=== PATIENT | female | born 1990 | race Caucasian/White ===

== ENCOUNTER 2017-04-27 12:12 | Day surgery (SDC) | payer BC ==
[~2017-04-27 12:12] MED LIST: LACTATED RINGERS 1,000 ML IV SCH; LIDOCAINE 1% 20 ML VIAL (10MG/ML) FOR IV START INTRADERMA PRN
[2017-04-27 13:03] VITALS: RESP 16; TEMP 97.5
[2017-04-27] MEDS ORDERED: PROPOFOL 10 MG/ML 20 ML VIAL IV ONE (14:08)
--- NOTE | 2017-04-27 14:50 | P.PCN ---
Date of Procedure: 04/27/17 Procedure(s) Performed: Procedures: 1. Esophagogastroduodenoscopy and biopsy. 2. Colonoscopy and biopsy. Preoperative diagnosis: Epigastric pain and diarrhea. Postoperative diagnosis: 1. Small sliding hiatal hernia with no obvious esophagitis or complicated reflux disease. 2. Mild antral gastritis. 3. Normal colon and terminal ileum. 4. Biopsies obtained from the duodenum, antrum , esophagus, terminal ileum and random colon. Preparation: HalfLytely prep. Sedation: Was provided by anesthesia. Brief clinical history: The patient is a 27-year-old female who is scheduled for this evaluation because of epigastric pain and diarrhea that she had been having intermittently since he was in high school. There is no other alarm symptoms or extraintestinal manifestations of inflammatory bowel disease. This evaluation is to assess for inflammatory bowel disease, complicated reflux disease, celiac disease or other pathology. Procedure: With the patient on her left lateral decubitus position and after informed consent and adequate sedation, I passed the Olympus-GIF 160 video upper endoscope through the cricopharyngeus down the esophagus. GE junction was around 35-36 cm from the incisors and there was a small 1 cm sliding hiatal hernia. The esophagus did not show any obvious erosions or ulcers. There were no strictures or Roberts's esophagus. The endoscope was then passed into the stomach which was insufflated with air and inspected in detail including the retroflex view in the cardia. There was some mottling and erythema in the antrum but no ulcers or erosions. Pyloric channel, duodenal bulb, post bulbar area and descending duodenum appeared within normal limits. Because of her symptoms, I obtained biopsies from the duodenum, antrum and esophagus then the endoscope was withdrawn and I proceeded with the colonoscopy. The perianal area was inspected and it did not show any fissures or fistulas. There were no masses felt on digital rectal examination. The Olympus CFQ 160L video colonoscope was then inserted in the rectum in the usual fashion and advanced to the cecum. I intubated the ileocecal valve and examined the terminal ileum. The colon and terminal ileum appeared healthy with no edema, erythema, friability, ulceration, exudation or spontaneous bleeding. No polyps or tumors were seen. I obtained biopsies from the terminal ileum and randomly from the colon then I retroflexed the endoscope in the rectum before the endoscope was withdrawn. The patient tolerated the procedure well. Plan: The patient was reassured. Will await biopsy results and make further plans based on her course and biopsy results. I'll keep you updated on her progress.
[2017-04-27 15:13] VITALS: BP 120/85; PULSE 69
== END 2017-04-27 15:39 | disposition home or self-care (01) ==
LOC: ORWHC2ENDO 12:12
DX: K29.50 Unspecified chronic gastritis without bleeding (principal); K44.9 Diaphragmatic hernia without obstruction or gangrene; R19.7 Diarrhea, unspecified; Z91.040 Latex allergy status; Z79.899 Other long term (current) drug therapy
CPT/HCPCS: 81025; 88305; 88342; 45380; 43239; J2704

== ENCOUNTER → 2021-11-25 | Outpatient (CLI) | payer BC ==
[2021-11-25 14:43] LABS: Basophils # (A) 0.04 X 10*3/uL (0.00-0.10); Basophils % (A) 0.4 %; Eosinophils # (A) 0.09 X 10*3/uL (0.04-0.35); Eosinophils % (A) 0.9 %; HCT 42.9 % (37.2-46.3); HGB 13.8 g/dL (12.0-15.0); Immature Grans, Automated 0.4 %; Lymphocytes # (A) 2.43 X 10*3/uL (0.90-5.00); Lymphocytes % (A) 24.1 %; MCH 27.9 pg (27.0-32.0); MCHC 32.2 g/dL (32.0-37.0); MCV 86.7 fL (80.0-97.0); Mean Platelet Volume 10.4 fL (9.5-12.2); Monocytes # (A) 0.47 X 10*3/uL (0.20-1.00); Monocytes % (A) 4.7 %; NRBC Per 100 WBC 0 /100 WBCS (0.0-0.0); Neutrophils # (A) 7.02 X 10*3/uL (1.80-7.70); Neutrophils % (A) 69.5 %; Platelet Count 353 X 10*3/uL (140-440); RBC 4.95 X 10*6/uL (4.10-5.20); WBC 10.09 X 10*3/uL (4.50-10.00)
[2021-11-25 17:04] LABS: ALT 8 U/L (8-44); AST 17 U/L (13-35); African American GFR (CKD) 115.5 (60.0-200.0); Albumin 4.3 g/dL (3.8-4.9); Albumin/Globulin Ratio 1.19 (1.60-3.17); Alkaline Phosphatase 89 U/L (41-126); Blood Urea Nitrogen 8.8 mg/dL (9.0-27.0); Calcium 9.5 mg/dL (8.7-10.3); Carbon Dioxide 22.3 mmol/L (20.0-27.5); Chloride 103 mmol/L (96-109); Chol/HDL Ratio 3.96 Ratio; Globulin 3.6 g/dL (1.6-3.3); Glucose 92 mg/dL (70-110); LDL Cholesterol,Calculated 131.2 mg/dL (0.0-131.0); Lipase 30 U/L (14-63); Non-African American GFR(CKD) 99.6 (60.0-200.0); Potassium 4.1 mmol/L (3.5-5.5); Sodium 138 mmol/L (135-145); Total Protein 7.9 g/dL (6.2-8.2)
== END | disposition home or self-care (01) ==
LOC: LABWHC1 09:22
PROVIDERS: ATTEND Family Medicine
DX: K58.2 Mixed irritable bowel syndrome (principal); K29.60 Other gastritis without bleeding; E53.8 Deficiency of other specified B group vitamins
CPT/HCPCS: 36415; 80053; 80061; 82607; 83516; 83690; 84443; 85025

== ENCOUNTER 2022-01-26 09:25 | Day surgery (SDC) | payer BC ==
[2022-01-25 12:51] VITALS: BMI 40.2
[~2022-01-26 09:25] MED LIST changes: +LIDOCAINE 1% (10MG/ML) FOR IV START INTRADERMA PRN; -LIDOCAINE 1% 20 ML VIAL (10MG/ML) FOR IV START INTRADERMA PRN
[2022-01-26 09:55] VITALS: TEMP 98.3
[2022-01-26] MEDS ORDERED: PROPOFOL 10 MG/ML 20 ML VIAL IV ONE (10:29)
--- NOTE | 2022-01-26 10:40 | P.PCN ---
Date of Procedure: 01/26/22 Procedure(s) Performed: BRIEF HISTORY: Patient is a 31-year-old, pleasant, white female scheduled for an upper endoscopy as a part of evaluation of positive serologies for celiac disease. His been having intermittent diarrhea and abdominal pain years duration.. PROCEDURE PERFORMED: Esophagogastroduodenoscopy with biopsy. PREOPERATIVE DIAGNOSIS: Positive serologies for celiac disease. IV sedation per anesthesia. PROCEDURE: After informed consent was obtained, the patient was brought into the endoscopy unit. IV sedation was administered by Anesthesia under continuous monitoring. Initially the Olympus GIF-140 video endoscope was inserted into the mouth. Esophagus intubated without any difficulty. It was gradually advanced into the stomach and duodenum and carefully examined. The bulb and the second part of the duodenum appeared normal. Multiple biopsies were done from the duodenum to rule out celiac disease. The scope at this time was withdrawn to the stomach, adequately insufflated with air, and upon careful examination, mucosa of the antrum had minimal gastritis and biopsies were done from this area. The, body, cardia and the fundus appeared normal. The scope was then withdrawn into the esophagus. The GE junction was located at 41 cm from the incisors. The esophagus appeared normal. There were no erosions or ulcerations seen and the patient tolerated the procedure well. IMPRESSION: 1. Normal-appearing duodenum status post multiple biopsies to evaluate for celiac disease. 2. Mild antral gastritis. RECOMMENDATIONS: The findings of this examination were discussed with the patient as well as a family. Follow up with the biopsy results..
[2022-01-26 11:11] VITALS: RESP 16
[2022-01-26 11:12] VITALS: BP 117/75; PULSE 72
== END 2022-01-26 11:40 | disposition home or self-care (01) ==
LOC: ORWHC2ENDO 09:25
PROVIDERS: ATTEND Internal Medicine Gastroenterology
DX: K29.50 Unspecified chronic gastritis without bleeding (principal); Z79.899 Other long term (current) drug therapy; Z90.49 Acquired absence of other specified parts of digestive tract; Z91.040 Latex allergy status
CPT/HCPCS: 81025; 88305; 43239; J2704

== ENCOUNTER → 2022-04-07 | Outpatient (CLI) | payer BC ==
[2022-04-07 11:18] VITALS: BP 134/88; PULSE 80; RESP 18; TEMP 98.4
--- NOTE | 2022-04-07 11:24 | P.PAINCN ---
History of Present Illness - Reason for Consult Consult date: 04/07/22 Neck pain, and headache - Chief Complaint Neck pain, and headache - History of Present Illness Ms. Patel is a 32 year old pleasant female patient came to [facility] pain management clinic for initial evaluation for upper neck pain, and headaches. Patient described pain started more than 2 years ago, gradually getting worse. Patient described pain as aching, sharp, throbbing type of pain. Sometimes she is getting headaches around her back of the neck sometimes radiates to middle of the head. She denied any nausea vomiting, blurred vision, abdominal discomfort for, loss of consciousness with headaches. Patient rated pain 3-5 out of 10 in severity. Which may very her pain level from 3-7 out of 10 in severity. She completed her physical therapy as she is working in [employer] area. Which was helpful. Some activities sometimes making her neck pain worse. Motrin helping along with Tylenol as needed for headache, neck pain. Because of the pain patient is feeling lack of sleep and interest and energy. Denied any bowel or bladder problems. Patient denies any adverse effects to medications. She is not using any walking aids for walking. Complaining depression secondary to pain but denied any suicidal/homicidal tendency at this time. Sleep pattern -altered sometimes secondary to pain. There are no signs of narcotic diversion/misuse/overuse and no new-onset weakness, bowel/bladder incontinence, saddle anesthesia, or no red flag symptoms. Conservative treatment tried: Qofv-hmq-[id number] medications, and Tylenol, and Motrin Daxo-jjp-mttoqmu lidocaine patch-never tried Ice, and heat Physical therapy exercises, exercises at home as tolerated- helpful TENS unit's-helpful Chiropractic therapy-never tried Review of Systems All systems: negative Constitutional: Denies chills, Denies fever Eyes: denies blurred vision, denies pain Ears, nose, mouth and throat: Reports headache, Denies sore throat Cardiovascular: Denies chest pain, Denies shortness of breath Respiratory: Denies cough Gastrointestinal: Denies abdominal pain, Denies diarrhea, Denies nausea, Denies vomiting Genitourinary: Denies dysuria, Denies hematuria Musculoskeletal: Reports neck pain, Reports neck stiffness, Denies myalgias Integumentary: Denies pruritus, Denies rash Neurological: Denies numbness, Denies weakness Psychiatric: Denies anxiety, Denies depression Endocrine: Denies fatigue, Denies weight change Past Medical History Past Medical History: No Reported History Additional Past Medical History / Comment(s): CURRENT; ABD PAIN WITH NAUSEA,gluten intolerance-tested positive for antibodies,hx Migraines. ENDOMETRIOSIS. History of Any Multi-Drug Resistant Organisms: None Reported Past Surgical History: Cholecystectomy, Tonsillectomy Additional Past Surgical History / Comment(s): 2012 Past Anesthesia/Blood Transfusion Reactions: No Reported Reaction Past Psychological History: Anxiety Smoking Status: Never smoker, Unknown if ever smoked Past Alcohol Use History: None Reported Past Drug Use History: None Reported - Past Family History Mother Family Medical History: No Reported History Medications and Allergies Home Medications Medication Instructions Recorded Confirmed Type Pati Control 1 dose PO HS 01/25/22 04/07/22 History Ibuprofen [Motrin] 600 mg PO Q8HR PRN 01/25/22 04/07/22 History Allergies Allergy/AdvReac Type Severity Reaction Status Date / Time latex Allergy Rash/Hives Verified 04/07/22 11:05 Physical Exam Vitals: Intake and Output 04/06/22 04/07/22 04/07/22 22:59 06:59 14:59 Other: Weight 104.326 kg General: Well-developed, well-nourished, no acute distress HEENT: Normocephalic, and atraumatic Neck: Supple, no neck swelling Psychiatric: Appropriate mood, and affect CREATIVE ENGAGEMENT DIRECTOR: No focal neurological deficits Musculoskeletal: Upper extremity: Normal strength, and range of motion. Sensation grossly intact Lower extremity: Normal strength, and range of motion. Sensation grossly intact Cervical spine: Paravertebral tenderness: Positive Cervical spine facet juanpablo: Positive Cervical spine Spurling test: Negative Results Comments: CT soft tissue of the neck with contrast done on 12/03/2021 showed No significant abnormalities Assessment and Plan Assessment: Bilateral occipital neuralgia Cervicalgia Myofascial pain syndrome Plan: #1 Diagnoses, prognosis, and multiple treatment options including but not limited to physical therapy, interventional therapy, adjunct medication therapy, narcotic medication, and surgical options were discussed with the patient. And all questions were answered to the patient's satisfaction. #2 treatment plan agreement : Patient was thoroughly discussed regarding the treatment options, alternatives, and importance of exercises as tolerated. Patient clearly understood. #3 Patient was counseled on importance of regular exercise. Including stu chi, aerobic exercises as tolerated. Which helps for chronic pain, and overall well- being. #4 investigations: MAPS- reviewed , urine drug test- none #5 diagnostic tests: Plan to do cervical spine x-ray / MRI if occipital nerve block not helpful, before proceeding for cervical spine injections #6 consultation : None # 7 interventional procedures: bi lateral greater occipital nerve block . Procedure, complications, alternatives discussed with the patient. #8 medications #1 Motrin and Tylenol . Total dose of Tylenol not more than 2 g per day #9 morphine milligrams equivalents dose ( MME) per day: 0 from the pain clinic. # 10 TENS unit's, and percussion massage device #11 disposition: scheduled to follow up with pain clinic in 4-6 weeks duration. Time with Patient: Less than 30 PQRS Measure Charge Sheet Measure #130: Documentation of Current Meds in Medical Chart: Patient's medicat ions documented in chart Measure #226: Tobacco Use: Screen & Cessation Intervention: Pt not a tobacco user Measure #111: Pneumonia Vaccination: Pneumococcal vaccine NOT administered or previously given Measure #47: Advance Care Plan: Advance care planning discussed & documented, pt chose/unable to give Measure #412: Opioid Treatment Agreement: No documentation of signed opioid treatment agreement Measure #408: Opioid Therapy Follow-up Evaluation: Patient had NO f/u eval minimum every 3 months during opioid therapy Measure #317: Preventitive Care & Scrn High Bld Press & F/U: Normal blood pressure, f/u not required Measure #128: Body Mass Index (BMI) Screening & Follow-up: BMI documented ABOVE normal parameters - f/u documented Measure #131: Pain Assessment & Follow-up: Pain positive & plan documented Measure #431: Unhealthy Alcohol Use Preventative Care & Scrn: Patient not identified as an unhealthy alcohol user PQRS Narrative: Smoking Status Never smoker Home Medications: Ambulatory Orders Pati Control 1 dose PO HS 01/25/22 Ibuprofen [Motrin] 600 mg PO Q8HR PRN 01/25/22
== END ==
LOC: PNWHC3 10:43
DX: M54.81 Occipital neuralgia (principal); M54.2 Cervicalgia; M79.10 Myalgia, unspecified site; Z91.040 Latex allergy status
CPT/HCPCS: 99211

== ENCOUNTER → 2022-10-22 | Outpatient (CLI) | payer BC ==
[2022-10-22 23:12] LABS: Basophils # (A) 0.04 X 10*3/uL (0.00-0.10); Basophils % (A) 0.5 %; Eosinophils # (A) 0.11 X 10*3/uL (0.04-0.35); Eosinophils % (A) 1.3 %; HCT 43.5 % (37.2-46.3); HGB 14.3 d/dL (12.0-15.0); Lymphocytes # (A) 2.36 X 10*3/uL (0.90-5.00); Lymphocytes % (A) 26.9 %; MCH 28.8 pg (27.0-32.0); MCHC 32.9 d/dL (32.0-37.0); MCV 87.5 FL (80.0-97.0); Monocytes # (A) 0.54 X 10*3/uL (0.20-1.00); Monocytes % (A) 6.2 %; NRBC Per 100 WBC 0 X 10*3/uL (0.00-0.01); Neutrophils # (A) 5.71 X 10*3/uL (1.80-7.70); Neutrophils % (A) 64.9 %; Platelet Count 329 X 10*3/uL (140-440); RBC 4.97 X 10*6/uL (4.10-5.20); RDW 13.4 % (11.5-14.5); WBC 8.78 X 10*3/uL (4.50-10.00)
[2022-10-23 09:46] LABS: T4, Free (Free Thyroxine) 1.25 ng/dL (0.80-1.80)
[2022-10-23 09:47] LABS: ALT 36 U/L (8-44); AST 24 U/L (13-35); Albumin 4.1 d/dL (3.8-4.9); Albumin/Globulin Ratio 1.32 Ratio (1.60-3.17); Alkaline Phosphatase 135 U/L (41-126); BUN/Creat Ratio 9.33 Ratio (12.00-20.00); Blood Urea Nitrogen 8.4 mg/dL (9.0-27.0); Calcium 9.6 mg/dL (8.7-10.3); Carbon Dioxide 16.9 mmol/L (21.6-31.8); Chloride 109 mmol/L (96-109); Globulin 3.1 d/dL (1.6-3.3); Glucose 96 mg/dL (70-110); Sodium 141 mmol/L (135-145); Total Bilirubin 0.3 mg/dL (0.3-1.2); Total Protein 7.2 d/dL (6.2-8.2)
== END | disposition home or self-care (01) ==
LOC: LABWHC1 08:35
PROVIDERS: ATTEND Family Medicine
DX: E53.8 Deficiency of other specified B group vitamins (principal); R53.82 Chronic fatigue, unspecified
CPT/HCPCS: 36415; 80053; 82533; 82607; 84439; 84443; 85025

== ENCOUNTER → 2023-04-21 | Outpatient (CLI) | payer BC ==
[2023-04-21 18:21] LABS: Basophils # (A) 0.03 X 10*3/uL (0.00-0.10); Basophils % (A) 0.3 %; Eosinophils # (A) 0.06 X 10*3/uL (0.04-0.35); Eosinophils % (A) 0.6 %; HCT 43.8 % (37.2-46.3); HGB 14.4 g/dL (12.0-15.0); Lymphocytes # (A) 2.71 X 10*3/uL (0.90-5.00); Lymphocytes % (A) 25.1 %; MCH 27.9 pg (27.0-32.0); MCHC 32.9 g/dL (32.0-37.0); MCV 84.9 FL (80.0-97.0); Mean Platelet Volume 10.1 FL (9.5-12.2); Monocytes # (A) 0.52 X 10*3/uL (0.20-1.00); Monocytes % (A) 4.8 %; NRBC Per 100 WBC 0 X 10*3/uL (0.00-0.01); Neutrophils # (A) 7.44 X 10*3/uL (1.80-7.70); Neutrophils % (A) 68.7 %; Platelet Count 317 X 10*3/uL (140-440); RBC 5.16 X 10*6/uL (4.10-5.20); RDW 13.5 % (11.5-14.5); WBC 10.81 X 10*3/uL (4.50-10.00)
[2023-04-21 18:48] LABS: Erythrocyte Sedimentation Rate 37 mm/Hr (0-20)
[2023-04-21 18:57] LABS: Blood Urea Nitrogen 9.6 mg/dL (9.0-27.0); Glucose 106 mg/dL (70-110)
[2023-04-21 18:58] LABS: ALT 12 U/L (8-44); AST 14 U/L (13-35); Albumin/Globulin Ratio 1.38 Ratio (1.60-3.17); Alkaline Phosphatase 112 U/L (41-126); Calcium 9.6 mg/dL (8.7-10.3); Carbon Dioxide 21.4 mmol/L (21.6-31.8); Chloride 103 mmol/L (96-109); Globulin 2.9 g/dL (1.6-3.3); Potassium 4.1 mmol/L (3.5-5.5); Sodium 138 mmol/L (135-145); T4, Free (Free Thyroxine) 0.97 ng/dL (0.80-1.80); Total Bilirubin <0.2 mg/dL (0.3-1.2); Total Protein 6.9 g/dL (6.2-8.2)
== END | disposition home or self-care (01) ==
LOC: LABWHC1 15:16
PROVIDERS: ATTEND Family Medicine
DX: E53.8 Deficiency of other specified B group vitamins (principal); K90.0 Celiac disease; R53.82 Chronic fatigue, unspecified
CPT/HCPCS: 36415; 80053; 82607; 84439; 84443; 85025; 85652; 86140

== ENCOUNTER → 2023-04-28 | Outpatient (CLI) | payer BC ==
[2023-04-28 16:13] LABS: Basophils # (A) 0.1 k/uL (0-0.2); Basophils % (A) 1 %; Eosinophils # (A) 0.2 k/uL (0-0.7); Eosinophils % (A) 1 %; HCT 44.3 % (34.0-46.0); HGB 14.8 gm/dL (11.4-16.0); Lymphocytes # (A) 3.5 k/uL (1.0-4.8); Lymphocytes % (A) 31 %; MCH 28.7 pg (25.0-35.0); MCHC 33.5 g/dL (31.0-37.0); MCV 85.8 fL (80.0-100.0); Monocytes # (A) 0.5 k/uL (0-1.0); Monocytes % (A) 4 %; Neutrophils # (A) 6.9 k/uL (1.3-7.7); Neutrophils % (A) 61 %; Platelet Count 357 k/uL (150-450); RBC 5.16 m/uL (3.80-5.40); RDW 13.5 % (11.5-15.5); WBC 11.3 k/uL (3.8-10.6)
[2023-04-28 16:52] LABS: Appearance,Urine Cloudy (Clear); Bacteria,Urine Few /hpf; Bilirubin,Urine Negative (Negative); Blood,Urine Negative (Negative); Color,Urine Light Yellow; Glucose,Urine (UA) Negative (Negative); Ketones,Urine Negative (Negative); Leukocyte Esterase,Urine Moderate (Negative); Nitrite,Urine Negative (Negative); PH, Urine 7.5 (5.0-8.0); Protein,Urine Negative (Negative); RBC,Urine 3 /hpf (0-5); Specific Gravity,Urine 1.013 (1.001-1.035); Squamous Epithelial Cell,Urine 3 /hpf (0-4); Urobilinogen,Urine <2.0 mg/dL (<2.0); WBC,Urine 4 /hpf (0-5)
[2023-04-29 02:33] LABS: ALT 15 U/L (8-44); AST 18 U/L (13-35); Albumin 4.3 g/dL (3.8-4.9); Albumin/Globulin Ratio 1.23 Ratio (1.60-3.17); Alkaline Phosphatase 127 U/L (41-126); BUN/Creat Ratio 8.38 Ratio (12.00-20.00); Blood Urea Nitrogen 6.7 mg/dL (9.0-27.0); Carbon Dioxide 23.4 mmol/L (21.6-31.8); Chloride 102 mmol/L (96-109); Globulin 3.5 g/dL (1.6-3.3); Glucose 87 mg/dL (70-110); Potassium 3.9 mmol/L (3.5-5.5); Protein, Total 7.9 g/dL (6.2-8.2); Sodium 137 mmol/L (135-145); Total Bilirubin <0.2 mg/dL (0.3-1.2); Total Protein 7.8 g/dL (6.2-8.2)
[2023-04-29 03:56] LABS: Erythrocyte Sedimentation Rate 48 mm/Hr (0-20)
[2023-04-29 03:57] LABS: Anti-Smith Ab Interp Negative (Negative); Centromere Antibody <0.2 AI; Centromere Antibody Interp Negative (Negative); Chromatin Antibody <0.2 AI; JO-1 IgG Antibody <0.2 AI; Scleroderma SC-70 Ab <0.2 AI
== END | disposition home or self-care (01) ==
LOC: LABWHC1 15:18
PROVIDERS: ATTEND Family Medicine
DX: M13.0 Polyarthritis, unspecified (principal); R50.9 Fever, unspecified; R51.9 Headache, unspecified
CPT/HCPCS: 36415; 80053; 81001; 84165; 85025; 85652; 86038; 86140; 86235; 86334; 86618; 86694; 86695; 86696; 87040

== ENCOUNTER → 2023-08-04 | Outpatient (CLI) | payer BC ==
[2023-08-04 16:12] LABS: Basophils % (A) 0 %; Eosinophils # (A) 0.2 k/uL (0-0.7); Eosinophils % (A) 2 %; HGB 14.4 gm/dL (11.4-16.0); Lymphocytes # (A) 2.8 k/uL (1.0-4.8); Lymphocytes % (A) 28 %; MCH 27.6 pg (25.0-35.0); MCHC 31.3 g/dL (31.0-37.0); Mean Platelet Volume 7.1; Monocytes # (A) 0.5 k/uL (0-1.0); Monocytes % (A) 5 %; Neutrophils # (A) 6.4 k/uL (1.3-7.7); Neutrophils % (A) 64 %; Platelet Count 309 k/uL (150-450); RBC 5.23 m/uL (3.80-5.40); RDW 13.8 % (11.5-15.5)
[2023-08-04 18:32] LABS: ALT 20 U/L (8-44); AST 35 U/L (13-35); Albumin 4.1 g/dL (3.8-4.9); Albumin/Globulin Ratio 1.32 Ratio (1.60-3.17); Alkaline Phosphatase 97 U/L (41-126); BUN/Creat Ratio 12.62 Ratio (12.00-20.00); Blood Urea Nitrogen 10.1 mg/dL (9.0-27.0); Calcium 9.6 mg/dL (8.7-10.3); Carbon Dioxide 20.9 mmol/L (21.6-31.8); Chloride 105 mmol/L (96-109); Globulin 3.1 g/dL (1.6-3.3); Glucose 102 mg/dL (70-110); Potassium 4.1 mmol/L (3.5-5.5); Sodium 139 mmol/L (135-145); Total Bilirubin <0.2 mg/dL (0.3-1.2); Total Protein 7.2 g/dL (6.2-8.2)
[2023-08-04 19:41] LABS: Erythrocyte Sedimentation Rate 16 mm/Hr (0-20)
== END | disposition home or self-care (01) ==
LOC: LABWHC1 15:16
PROVIDERS: ATTEND Family Medicine
DX: D72.829 Elevated white blood cell count, unspecified (principal)
CPT/HCPCS: 36415; 80053; 85025; 85652; 86140

== ENCOUNTER → 2024-04-26 | Outpatient (CLI) | payer BC ==
[2024-04-26 21:44] LABS: Basophils # (A) 0.04 X 10*3/uL (0.00-0.10); Basophils % (A) 0.4 %; Eosinophils # (A) 0.22 X 10*3/uL (0.04-0.35); HCT 43.5 % (37.2-46.3); HGB 13.8 g/dL (12.0-15.0); Lymphocytes # (A) 3.07 X 10*3/uL (0.90-5.00); Lymphocytes % (A) 27.7 %; MCHC 31.7 g/dL (32.0-37.0); MCV 85.1 FL (80.0-97.0); Mean Platelet Volume 10.2 FL (9.5-12.2); Monocytes # (A) 0.55 X 10*3/uL (0.20-1.00); NRBC Per 100 WBC 0 X 10*3/uL (0.00-0.01); Neutrophils # (A) 7.17 X 10*3/uL (1.80-7.70); Neutrophils % (A) 64.6 %; Platelet Count 331 X 10*3/uL (140-440); RBC 5.11 X 10*6/uL (4.10-5.20); RDW 13.8 % (11.5-14.5); WBC 11.08 X 10*3/uL (4.50-10.00)
[2024-04-26 22:04] LABS: ALT 30 U/L (8-44); AST 21 U/L (13-35); Albumin 4.2 g/dL (3.8-4.9); Alkaline Phosphatase 145 U/L (41-126); BUN/Creat Ratio 14.57 Ratio (12.00-20.00); Blood Urea Nitrogen 10.2 mg/dL (9.0-27.0); Calcium 9.2 mg/dL (8.7-10.3); Carbon Dioxide 22.2 mmol/L (21.6-31.8); Chloride 103 mmol/L (96-109); Globulin 2.8 g/dL (1.6-3.3); Glucose 86 mg/dL (70-110); HCG,Quantitative Serum <3.0 mIU/mL (0.0-6.0); Potassium 4.2 mmol/L (3.5-5.5); Sodium 138 mmol/L (135-145); T4, Free (Free Thyroxine) 0.85 ng/dL (0.80-1.80); Total Bilirubin 0.4 mg/dL (0.3-1.2)
[2024-04-26 22:09] LABS: Follicle Stimulating Hormone 6.9 mIU/mL; Luteinizing Hormone 6.7 mIU/mL
== END | disposition home or self-care (01) ==
LOC: LABWHC1 13:51
PROVIDERS: ATTEND Family Medicine
DX: G93.2 Benign intracranial hypertension (principal); N91.4 Secondary oligomenorrhea; L70.9 Acne, unspecified
CPT/HCPCS: 36415; 80053; 82626; 83001; 83002; 84146; 84403; 84439; 84443; 84480; 84702; 85025

== ENCOUNTER → 2024-08-08 | Outpatient (CLI) | payer BC ==
[2024-08-08 15:35] VITALS: BP 131/92; PULSE 96; RESP 16; TEMP 98.2
--- NOTE | 2024-08-08 16:06 | P.SLEEP ---
History of Present Illness DATE: 08/08/2024 CONSULTATION/NEW PATIENT EVALUATION HISTORY OF PRESENT ILLNESS/SLEEP-WAKE EVALUATION: 34-year-old lady had been e valuated in the sleep center for possible obstructive sleep apnea hypopnea syndrome. SLEEP SCHEDULE: Usually sleep schedule from 10:30 PM to 7:30 AM on weekdays and from 11 PM to 9 AM on weekend. FALLING ASLEEP: Sometimes patient has difficulties with falling asleep, has TV set in bedroom. DURING SLEEP: Patient sleeps in different positions with snoring and awakenings from sleep 3 times without nocturia. Positive history of dry mouth, panic attacks, sweating. No history of hypnogogical hallucinations, sleep paralysis, or cataplexy. DURING THE DAY/WAKE STATE: In the morning patient wake up tired, has difficulties to pay attention, falling asleep during the day. Positive history of problems with memory, concentration, irritability, depression and anxiety.. [place] sleepiness scale is increased to 10. Patient takes 1 nap at 1 PM on weekend.[]. PAST MEDICAL HISTORY: Migraines, occipital headaches. PAST SURGICAL HISTORY: Cholecystectomy, tonsillectomy. MEDICATIONS: Please see below. SOCIAL HISTORY: Please see below. FAMILY HISTORY: Please see below. REVIEW OF SYSTEMS:, Multiple awakenings from sleep, sleepiness during the day. No fevers. No double vision. No recent chest pain. No shortness of breath. No abdominal pain. No bleeding episodes. No blood in urine. No seizure episodes. PHYSICAL EXAMINATION: GENERAL: A pleasant patient without any distress. VITAL SIGNS: See below, weight 249 pounds, BMI 44.8. HEENT: PERRLA, EOMI. Evaluation of oropharynx showed tongue protrudes midline, low position of soft palate Mallampati 3. NECK: Supple. No JVD. Thyroid is not palpable. 15-3/4 inches in circumference. LUNGS: Clear to percussion and to auscultation. Good air exchange. No wheezing or rhonchi. HEART: S1, S2 regular. No murmurs, gallops or rubs. ABDOMEN: Soft and nontender. Bowel sounds are present. No organomegaly appreciated. EXTREMITIES: No clubbing or cyanosis. SKILLS AUDITOR: Awake, alert, and oriented x3. Cranial nerves 2 to 7 intact. There is no fasciculation or atrophy noted. No focal deficits observed. ASSESSMENT: 1. Snoring, multiple awakenings from sleep, small oropharyngeal airspace with low position of soft palate Mallampati 3, sleepiness with [place] Sleepiness Scale 10. Obstructive sleep apnea hypopnea syndrome. 2. Obesity, BMI 44.8. 3. Migraines. 4. History of occipital neuralgia. 5 status post cholecystectomy. 6 . Status post tonsillectomy. PLAN: 1. Home sleep apnea test for evaluation of patient's breathing during sleep. 2. Following plan after reading sleep study. 3. Preferable position during sleep on the side. 4. No driving if patient feels any sleepiness. Patient is aware of civil and criminal liability for unsafe driving. 5. Sleep hygiene with regular sleep time for at least 7.5-8 hours. 6. Watching and losing weight. Thank you very much for referring this patient for consultation. Sincerely, Fransisco Carson MD, PhD, FAASM. Diplomat of [place] [employer], Sleep Medicine Board by [place] [employer] [place] [employer] Director [employer] [facility] [place] cc: Keiry Owens MD Past Medical History Past Medical History: No Reported History Additional Past Medical History / Comment(s): CURRENT; ABD PAIN WITH NAUSEA,gluten intolerance-tested positive for antibodies,hx Migraines, Celiac Disease, ocipital Neurology, headaches. ENDOMETRIOSIS. History of Any Multi-Drug Resistant Organisms: None Reported Past Surgical History: Cholecystectomy, Tonsillectomy Additional Past Surgical History / Comment(s): EGD Past Anesthesia/Blood Transfusion Reactions: No Reported Reaction Past Psychological History: Anxiety Smoking Status: Never smoker Past Alcohol Use History: Occasional Past Drug Use History: Marijuana - Past Family History Mother Family Medical History: No Reported History Father Family Medical History: Coronary Artery Disease (CAD), Hyperlipidemia, Hypertension Medications and Allergies Home Medications Medication Instructions Recorded Confirmed Type Ibuprofen [Motrin] 600 mg PO Q8HR PRN 01/25/22 06/23/22 History Omeprazole [PriLOSEC] 40 mg PO DAILY 06/22/22 06/23/22 History norethindrone-e.estradioL-iron 1 tab PO HS 06/22/22 06/23/22 History [Blisovi Fe 1-20 Tablet] Caffeine Tabs 1 - 2 tab PO BID 06/23/22 06/23/22 History Cyclobenzaprine [Flexeril] 5 mg PO DAILY 08/08/24 08/08/24 History Ibuprofen 600 mg PO DIRECTED PRN 08/08/24 08/08/24 History Norethindrone [Jencycla] 0.35 mg PO DAILY 08/08/24 08/08/24 History Spironolactone 50 mg PO DAILY 08/08/24 08/08/24 History Allergies Allergy/AdvReac Type Severity Reaction Status Date / Time gluten Allergy celiac Verified 06/23/22 07:12 disease latex Allergy Rash/Hives Verified 06/23/22 07:12 Milk Containing Products Allergy Unknown Verified 06/23/22 07:12 (Dairy) [Milk Containing Products] Physical Exam Vitals: Vital Signs Temp Pulse Resp BP Pulse Ox 08/08/24 15:31 98.2 F 96 16 131/92 99 Intake and Output 08/08/24 08/08/24 08/08/24 06:59 14:59 22:59 Other: Weight 112.945 kg Sleep Note - Sleep Data ESS Total: 10 - Sleep Note Sleep Note: Temperature: 98.2 F Pulse Rate: 96 Respiratory Rate: 16 Blood Pressure: 131/92 SpO2: 99 Height: 5 ft 2.5 in Weight: 112.945 kg BMI: Neck Circumference: 15.7
== END ==
LOC: 3 N SLEEP 14:56
PROVIDERS: ATTEND Internal Medicine
DX: G47.33 Obstructive sleep apnea (adult) (pediatric) (principal); E66.9 Obesity, unspecified; G43.909 Migraine, unspecified, not intractable, without status migrainosus; Z68.41 Body mass index [BMI] 40.0-44.9, adult; Z86.69 Personal history of other diseases of the nervous system and sense organs; Z90.49 Acquired absence of other specified parts of digestive tract; Z90.89 Acquired absence of other organs; Z91.018 Allergy to other foods; Z91.011 Allergy to milk products; Z91.040 Latex allergy status
CPT/HCPCS: 99211

== ENCOUNTER → 2024-08-22 | Outpatient (CLI) | payer BC ==
--- NOTE | 2024-08-26 16:09 | P.PCN ---
Description of Procedure: CLINICAL: A home sleep apnea test has been done for confirmation of possible obstructive sleep apnea-hypopnea syndrome. DESCRIPTION OF PROCEDURE: RESULTS: Recording time was 8 hours 19 minutes. Evaluation time was 8 hours 07 minutes. Evaluation time is sufficient for making conclusion about results of the test. Raw data of sleep recording has been reviewed and is adequate. Respiratory channel showed 1 apneas and 29 hypopneas. Apnea-hypopnea index was 3.7 per hour. Pulse rate in the range between minimum 59, maximum 113, average 76 by computer calculation. Lowest desaturation was 84%. IMPRESSION: 1. No significant respiratory abnormalities have been documented during home sleep apnea test, although home sleep apnea test could be false negative. Please see other impressions from consultation. PLAN: 1. I will see patient for follow-up visit to discuss results of the test and following plan. 2. Sleep hygiene with regular time in bed for at least 8 hours. 3. Watching and losing weight. 4. No driving if feeling any sleepiness. Thank you very much for allowing me to participate in the management of your patient. Sincerely, Fransisco Carson MD, PhD, FAASM Diplomat of [place] [employer] Sleep Medicine Board of [place] [employer] [facility] [place] cc: Keiry Owens MD
== END ==
LOC: 3 N SLEEP 16:49
PROVIDERS: ATTEND Internal Medicine
DX: G47.33 Obstructive sleep apnea (adult) (pediatric) (principal); Z91.040 Latex allergy status; Z91.011 Allergy to milk products; Z91.018 Allergy to other foods

== ENCOUNTER → 2024-09-26 | Outpatient (CLI) | payer BC ==
[2024-09-26 10:18] LABS: Basophils # (A) 0.04 X 10*3/uL (0.00-0.10); Basophils % (A) 0.4 %; Eosinophils % (A) 1.9 %; HCT 42.5 % (37.2-46.3); HGB 13.7 g/dL (12.0-15.0); Lymphocytes # (A) 3.26 X 10*3/uL (0.90-5.00); MCH 27.5 pg (27.0-32.0); MCHC 32.2 g/dL (32.0-37.0); MCV 85.3 FL (80.0-97.0); Mean Platelet Volume 9.9 FL (9.5-12.2); Monocytes # (A) 0.65 X 10*3/uL (0.20-1.00); Monocytes % (A) 6.2 %; NRBC Per 100 WBC 0 X 10*3/uL (0.00-0.01); Neutrophils # (A) 6.32 X 10*3/uL (1.80-7.70); Neutrophils % (A) 60.1 %; Platelet Count 322 X 10*3/uL (140-440); RBC 4.98 X 10*6/uL (4.10-5.20); RDW 13.9 % (11.5-14.5); WBC 10.51 X 10*3/uL (4.50-10.00)
[2024-09-26 10:45] LABS: Chol/HDL Ratio 4.28 Ratio
[2024-09-26 10:46] LABS: ALT 33 U/L (8-44); AST 25 U/L (13-35); Albumin/Globulin Ratio 1.43 Ratio (1.60-3.17); Alkaline Phosphatase 146 U/L (41-126); BUN/Creat Ratio 19.25 Ratio (12.00-20.00); Blood Urea Nitrogen 15.4 mg/dL (9.0-27.0); Calcium 8.9 mg/dL (8.7-10.3); Chloride 103 mmol/L (96-109); Globulin 2.8 g/dL (1.6-3.3); Glucose 96 mg/dL (70-110); Potassium 4.2 mmol/L (3.5-5.5); Sodium 135 mmol/L (135-145); Total Bilirubin 0.3 mg/dL (0.3-1.2); Total Protein 6.8 g/dL (6.2-8.2)
== END | disposition home or self-care (01) ==
LOC: LABWHC1 07:12
PROVIDERS: ATTEND Family Medicine
DX: G47.13 Recurrent hypersomnia (principal); E28.1 Androgen excess; E55.9 Vitamin D deficiency, unspecified; E53.8 Deficiency of other specified B group vitamins
CPT/HCPCS: 36415; 80053; 80061; 82306; 82607; 82626; 83036; 84403; 84443; 85025